=== PATIENT | female | born 1930 ===

== ENCOUNTER 2017-11-12 15:46 | Inpatient (IN) | payer OTHER ==
[~2017-11-12] VITALS: Ht 157.5 cm; Wt 72.6 kg
[2017-11-12] MEDS ORDERED: COZAAR50 MG (16:04)
[2017-11-12] MEDS ORDERED: AMBIEN5 MG (16:04)
[2017-11-12] MEDS ORDERED: ATORVASTATIN CA40 MG (16:04)
[2017-11-18] MEDS ORDERED: LOSARTAN POTASS50 MG PO (11:51)
[2017-11-18] MEDS ORDERED: TOPROL XL25 M1 PO (11:51)
[2017-11-18] MEDS ORDERED: LIPITOR40 MG PO (11:51)
[2017-11-18] MEDS ORDERED: AMLODIPINE BESYL5 MG PO (11:51)
[2017-11-18] MEDS ORDERED: Invanz IV (11:51)
== END 2017-11-18 17:56 | disposition home or self-care (01) | DRG 378 ==
LOC: ER 15:46 → SEC-K 22:03 → MEDJ 22:03
PROC: BW21Y0Z Computerized Tomography (CT Scan) of Abdomen and Pelvis using Other Contrast, Unenhanced and Enhanced (ICD-10-PCS; principal; 2017-11-12)
PROC: BW40ZZZ Ultrasonography of Abdomen (ICD-10-PCS; 2017-11-16)
DX: K92.2 Gastrointestinal hemorrhage, unspecified (principal); N39.0 Urinary tract infection, site not specified; I10 Essential (primary) hypertension; E78.4 Other hyperlipidemia; D50.0 Iron deficiency anemia secondary to blood loss (chronic); B96.29 Other Escherichia coli [E. coli] as the cause of diseases classified elsewhere; B96.1 Klebsiella pneumoniae [K. pneumoniae] as the cause of diseases classified elsewhere; Z16.12 Extended spectrum beta lactamase (ESBL) resistance; B96.4 Proteus (mirabilis) (morganii) as the cause of diseases classified elsewhere; Z78.1 Physical restraint status